=== PATIENT | male | born 1965 | race African-American/Black ===

== ENCOUNTER 2023-12-06 12:05 | Emergency (ER) | payer OTHER, SELFPAY ==
[2023-12-06 12:39] VITALS: BP 158/100; PULSE 67; RESP 14; TEMP 36.4; O2SAT 100
[2023-12-06 12:40] VITALS: BP 158/100; PULSE 67; RESP 14; TEMP 36.4; O2SAT 100
--- NOTE | 2023-12-06 13:15 | ED.GENADULT ---
HPI - General Adult General Chief complaint: Extremity Problem,Nontraumatic Stated complaint: Right Foot Pain Time Seen by Provider: 12/06/23 13:08 Source: patient and RN notes reviewed Mode of arrival: ambulatory Limitations: no limitations History of Present Illness HPI narrative: Patient presents today complaining of a bunion to his right foot that has been present for the past year. States pain to the area for the past 2-3 days. Denies any recent injury. Denies numbness or tingling. Currently rates his pain 3/10 at rest, which increases to 6/10 with weight-bearing. Reports that he took some [id number] medication this morning without relief, but does not know the name. Related Data Home Medications Medication Instructions Recorded Confirmed clonazepam 1 mg tablet 1 mg PO DAILY 10/06/19 metoprolol tartrate 100 1 tablet PO DAILY 10/06/19 mg-hydrochlorothiazide 25 mg tablet aspirin 81 mg tablet,delayed 81 mg PO DAILY 12/06/23 12/06/23 release lisinopril 30 mg tablet 30 mg PO DAILY 12/06/23 12/06/23 melatonin 5 mg capsule 5 mg PO HS PRN insomnia 12/06/23 Allergies Allergy/AdvReac Type Severity Reaction Status Date / Time No Known Allergies Allergy Unverified 12/06/23 12:38 Review of Systems Review of Systems: CONSTITUTIONAL: Denies body aches, fever, chills, or sweats. EYES: Denies visual changes, redness, or discharge. ENT: Denies rhinorrhea, congestion, sore throat, or otalgia. CARDIOVASCULAR: Denies chest pain, palpitations, or edema. RESPIRATORY: Denies cough or dyspnea. GASTROINTESTINAL: Denies abdominal pain, nausea, vomiting, or diarrhea. GENITOURINARY: Denies dysuria or hematuria. SKIN: Denies rash, itching, or wounds. MUSCULOSKELETAL: Denies back pain, or myalgia.+ right foot pain NEUROLOGIC: Denies headache, numbness, tingling, or weakness. PSYCH: Denies depression or anxiety. PMFSH Comments At time of signature, I have reviewed and agree with nursing past medical, surgical, social and family history unless otherwise noted. Please see nursing chart for further information. There is no relevant family history pertinent to the presenting complaint Exam Narrative: GENERAL: Well-appearing, well-nourished, and in no acute distress. HEAD: Normocephalic, atraumatic. EYES: EOMI. No redness or drainage. Conjunctivae normal. ENT: Mucous membranes pink and moist. NECK: Normal AROM. CHEST: No respiratory distress. EXTREMITIES: Right foot: Obvious bunion at the right 1st MTP. Mildly tender to palpation at this joint. No obvious edema, erythema noted. Distal sensation intact. Capillary refill normal. Pedal pulse normal. SKIN: Warm, dry, no rash. Capillary refill normal. Normal skin turgor. NEURO: No focal deficits. Alert and oriented x3. Gait steady. PSYCH: Normal affect. No signs of depression or anxiety. Course Course Level of Care: Express Care Visit Vital Signs Vital signs: Vital Signs Temperature 97.6 F 12/06/23 12:39 Pulse Rate 67 12/06/23 12:39 Respiratory Rate 14 12/06/23 12:39 Blood Pressure 158/100 H 12/06/23 12:39 Pulse Oximetry 100 12/06/23 12:39 Oxygen Delivery Room Air 12/06/23 12:39 Temperature 97.6 F 12/06/23 12:40 Pulse Rate 67 12/06/23 12:40 Respiratory Rate 14 12/06/23 12:40 Blood Pressure 158/100 H 12/06/23 12:40 Pulse Oximetry 100 12/06/23 12:40 Oxygen Delivery Room Air 12/06/23 12:40 Reviewed Medical Decision Making MDM Narrative Medical decision making narrative: Discussed with patient that he needs to follow-up with Podiatry regarding his bunion. Will prescribe some diclofenac to see if this will help with his pain. He declines an x-ray at this time. Anticipatory guidance given. Differential Diagnosis Differential Diagnosis: Bunion, osteoarthritis, sethi's neuroma Vital Signs Vital Signs: Vital Signs Temperature 97.6 F 12/06/23 12:39 Pulse Rate 67 12/06/23 12:39 Respira
== END 2023-12-06 13:30 | disposition home or self-care (01) ==
PROVIDERS: Emergency Provider Nurse Practitioner
DX: M21.611 Bunion of right foot (principal); I10 Essential (primary) hypertension
CPT/HCPCS: 99213; G0463